=== PATIENT | male | born 1995 ===

== ENCOUNTER 2020-06-05 10:30 | Emergency (ER) | payer SELFPAY ==
[2020-06-05] MEDS ORDERED: ALBUTEROL 2.5 MG/3 ML NEBU IH ONE ×2 (10:58→13:33)
[2020-06-05] MEDS ORDERED: IPRATROPIUM 0.02% NEBU 2.5 ML IH ONE (10:58)
[2020-06-05] MEDS ORDERED: dexAMETHasone 20 MG/5 ML VIAL IM ONE (10:58)
[2020-06-05 11:21] LABS: Hematocrit 45.7 % (35.5-45.6); Hemoglobin 15.8 gm/dl (11.8-15.2); Mean Corpuscular HGB Conc 35 % (32-34); Mean Corpuscular Volume 95 fl (84-94); Platelet Count 189 K/mm3 (140-440); Red Blood Count 4.83 M/mm3 (3.65-5.03)
[2020-06-05 11:48] LABS: Alanine Aminotransferase 7 units/L (7-56); Albumin 3.9 g/dL (3.9-5); BUN/Creatinine Ratio 11; Blood Urea Nitrogen 10 mg/dL (9-20); Calcium 9.9 mg/dL (8.4-10.2); Hemolysis Index 15
--- NOTE | 2020-06-05 12:00 | XRay Report ---
CHEST 2 VIEWS INDICATION / CLINICAL INFORMATION: MAIN. Chest pain COMPARISON: None available. FINDINGS: SUPPORT DEVICES: None. HEART / MEDIASTINUM: No significant abnormality. LUNGS / PLEURA: No significant pulmonary or pleural abnormality. No pneumothorax. ADDITIONAL FINDINGS: No significant additional findings. IMPRESSION: 1. No acute findings. Signer Name: Asher Amador MD Signed: 06/05/2020 11:56 AM Workstation Name: [id number]
[2020-06-05] MEDS ORDERED: MAGNESIUM SULFATE 2 GM/50 ML BAG IV ONE (12:09)
--- NOTE | 2020-06-05 12:56 | Emergency Department Report ---
ED Asthma HPI - General Chief Complaint: Adult Asthma Stated Complaint: ASTHMA/CHEST PAIN Time Seen by Provider: 06/05/20 11:33 Source: patient Mode of arrival: Ambulatory Limitations: No Limitations - History of Present Illness Initial Comments: Patient is a 24-year-old male presents emergency room with complaints of an asthma exacerbation that began 3 days ago but worsened this morning. He states he has been using his albuterol inhaler over the last couple days which was helping relief of symptoms but today he states that it was not helping. He has associated shortness of breath, wheezing, chest tightness. He states he has an occasional dry cough. He denies any fever, nausea, vomiting, diarrhea, rhinorrhea, sore throat, ear pain, productive cough. He denies any known sick contacts. He denies any recent travel. He has never had to be intubated for his asthma. He states he has been admitted for his asthma before but it was several years ago. He denies any other past medical history. No allergies to medications. - Related Data Previous Rx's Medication Instructions Recorded Last Taken Type ALBUTEROL NEB's [Proventil 0.083% 2.5 mg IH TID PRN #1 box 06/05/20 Unknown Rx NEBS] Albuterol Sulfate [Proventil Hfa] 6.7 gm IH TID PRN #1 hfa.aer.ad 06/05/20 Unknown Rx Prednisone [predniSONE 10 mg 10 mg PO .TAPER #1 tab.ds.pk 06/05/20 Unknown Rx (6-Day Pack, 21 Tabs)] Allergies Allergy/AdvReac Type Severity Reaction Status Date / Time No Known Allergies Allergy Unverified 06/05/20 10:49 ED Review of Systems ROS: Stated complaint: ASTHMA/CHEST PAIN Other details as noted in HPI Comment: All other systems reviewed and negative ED Past Medical Hx - Past Medical History Previous Medical History?: Yes Hx Asthma: Yes - Surgical History Past Surgical History?: No - Social History Smoking Status: Never Smoker Substance Use Type: None - Medications Home Medications: Home Medications Medication Instructions Recorded Confirmed Last Taken Type ALBUTEROL NEB's [Proventil 0.083% 2.5 mg IH TID PRN #1 box 06/05/20 Unknown Rx NEBS] Albuterol Sulfate [Proventil Hfa] 6.7 gm IH TID PRN #1 hfa.aer.ad 06/05/20 Unknown Rx Prednisone [predniSONE 10 mg 10 mg PO .TAPER #1 tab.ds.pk 06/05/20 Unknown Rx (6-Day Pack, 21 Tabs)] ED Physical Exam - General Limitations: No Limitations General appearance: alert - Head Head exam: Present: atraumatic, normocephalic - Eye Eye exam: Present: normal appearance - ENT ENT exam: Present: mucous membranes moist - Respiratory Respiratory exam: Present: respiratory distress (moderate), wheezes (bilaterally), decreased breath sounds (bilaterally), prolonged expiratory. Absent: rales, rhonchi, stridor, chest wall tenderness, accessory muscle use - Cardiovascular Cardiovascular Exam: Present: regular rate, normal rhythm, normal heart sounds. Absent: systolic murmur, diastolic murmur, rubs, gallop - Neurological Exam Neurological exam: Present: alert, oriented X3 - Psychiatric Psychiatric exam: Present: normal affect, normal mood - Skin Skin exam: Present: warm, dry, intact ED Course Vital Signs 06/05/20 06/05/20 06/05/20 10:45 13:06 13:07 Temperature 97.5 F L 98.1 F 98.1 F Pulse Rate 97 H 87 73 Respiratory 26 H 18 18 Rate Blood Pressure 121/72 127/67 Blood Pressure 127/67 [Right] O2 Sat by Pulse 92 94 93 Oximetry 06/05/20 06/05/20 14:23 14:25 Temperature 98.1 F 98.2 F Pulse Rate 73 73 Respiratory 16 16 Rate Blood Pressure 123/70 Blood Pressure 123/70 [Right] O2 Sat by Pulse 94 94 Oximetry - Reevaluation(s) Reevaluation #1: 06/05/20 14:59 On reexamination wheezing has completely resolved ED Medical Decision Making - Lab Data Result diagrams: 06/05/20 10:56 06/05/20 10:56 Lab Results 06/05/20 06/05/20 Range/Units 10:56 10:56 WBC 9.1 (4.5-11.0) K/mm3 RBC 4.83 (3.65-5.03) M/mm3 Hgb 15.8 H (11.8-15.2) gm/dl Hct 45.7 H (35.5-45.6) % MCV 95 H (84-94) fl MCH 33 H (28-32) pg MCHC 35 H (32-34) % RDW 13.0 L (13.2-15.2) % Plt Count 189 (140-440) K/mm3 Sodium 143 (137-145) mmol/L Potassium 4.7 (3.6-5.0) mmol/L Chloride 104.6 (98-107) mmol/L Carbon Dioxide 34 H (22-30) mmol/L Anion Gap 9 mmol/L BUN 10 (9-20) mg/dL Creatinine 0.9 (0.8-1.3) mg/dL Estimated GFR > 60 ml/min BUN/Creatinine Ratio 11 % Glucose 87 (75-100) mg/dL Calcium 9.9 (8.4-10.2) mg/dL Total Bilirubin 0.20 (0.1-1.2) mg/dL AST 16 (5-40) units/L ALT 7 (7-56) units/L Alkaline Phosphatase 74 (35-129) units/L Total Protein 7.3 (6.3-8.2) g/dL Albumin 3.9 (3.9-5) g/dL Albumin/Globulin Ratio 1.1 % Vital Signs (72 hours) 06/05/20 06/05/20 06/05/20 10:45 13:06 13:07 Temperature 97.5 F L 98.1 F 98.1 F Pulse Rate 97 H 87 73 Respiratory 26 H 18 18 Rate Blood Pressure 121/72 127/67 Blood Pressure 127/67 [Right] O2 Sat by Pulse 92 94 93 Oximetry 06/05/20 06/05/20 14:23 14:25 Temperature 98.1 F 98.2 F Pulse Rate 73 73 Respiratory 16 16 Rate Blood Pressure 123/70 Blood Pressure 123/70 [Right] O2 Sat by Pulse 94 94 Oximetry - Radiology Data Radiology results: report reviewed Ordering Physician: HOLDEN HOLLAND Date of Service: 06/05/20 Procedure(s): XR chest routine 2V Accession Number(s): [id number] cc: HOLDEN HOLLAND Fluoro Time In Minutes: CHEST 2 VIEWS INDICATION / CLINICAL INFORMATION: MAIN. Chest pain COMPARISON: None available. FINDINGS: SUPPORT DEVICES: None. HEART / MEDIASTINUM: No significant abnormality. LUNGS / PLEURA: No significant pulmonary or pleural abnormality. No pneumothorax. ADDITIONAL FINDINGS: No significant additional findings. IMPRESSION: 1. No acute findings. Signer Name: Nolberto Alcazar MD Signed: 06/05/2020 11:56 AM Workstation Name: [id number] Transcribed By: Dictated By: NOLBERTO ALCAZAR Electronically Authenticated By: NOLBERTO ALCAZAR Signed Date/Time: 06/05/20 1156 DD/ 1154 TD/TT: - Medical Decision Making Patient is a 24-year-old male presents emergency room with complaints of an asthma exacerbation that began 3 days ago but worsened this morning. He states he has been using his albuterol inhaler over the last couple days which was helping relief of symptoms but today he states that it was not helping. He has associated shortness of breath, wheezing, chest tightness. He states he has an occasional dry cough. He denies any fever, nausea, vomiting, diarrhea, rhinorrhea, sore throat, ear pain, productive cough. He denies any known sick contacts. He denies any recent travel. He has never had to be intubated for his asthma. He states he has been admitted for his asthma before but it was s everal years ago. He denies any other past medical history. No allergies to medications. Initial vitals with hypoxia and tachypnea. On exam he has moderate respiratory distress, wheezing and decreased breath sounds bilaterally. Labs are stable. CXR: 1. No acute findings. Patient given continuous neb treatment, steroids, magnesium. On reexamination breath sounds are completely clear, wheezing has resolved, patient has no respiratory distress, no accessory muscle use, he is feeling much better and ready to go home. He states he is breathing much better. Patient was ambulated in the emergency department by nurse and maintained sats of 94 percent or higher on RA and did not have any epi sodes of desaturation or shortness of breath. He does not have any clinical signs of bacterial pneumonia or bronchitis. Patient states that he does have a nebulizer machine but does not have any solution. Patient given prescription for albuterol inhaler, nebulizer solution, steroids. Discussed strict return precautions with patient. Advised patient to be reexamined by primary care doctor. Advised patient Please use medication as prescribed. Follow-up with your primary care doctor. Return to emergency room any new or worsening symptoms. - Differential Diagnosis Asthma, acute bronchitis, PNA, URI, viral syndrome, reactive airway Critical care attestation.: If time is entered above; I have spent that time in minutes in the direct care of this critically ill patient, excluding procedure time. ED Disposition Clinical Impression: Asthma exacerbation Qualifiers: Asthma severity: unspecified severity Asthma persistence: unspecified Qualified Code(s): J45.901 - Unspecified asthma with (acute) exacerbation Disposition: TO HOME OR SELFCARE Is pt being admited?: No Does the pt Need Aspirin: No Condition: Stable Instructions: Asthma, Adult Additional Instructions: Please use medication as prescribed. Follow-up with your primary care doctor. Return to emergency room any new or worsening symptoms. Prescriptions: Prednisone [predniSONE 10 mg (6-Day Pack, 21 Tabs)] 10 mg PO .TAPER #1 tab.ds.pk ALBUTEROL NEB's [Proventil 0.083% NEBS] 2.5 mg IH TID PRN #1 box PRN Reason: Wheezing Albuterol Sulfate [Proventil Hfa] 6.7 gm IH TID PRN #1 hfa.aer.ad PRN Reason: Wheezing Referrals: your, primary care doctor [Other] - 2-3 Days Time of Disposition: 15:00 Print Language: CITIZEN OF [place]
[2020-06-05] MEDS ORDERED: IBUPROFEN 600 MG TAB PO ONE (13:32)
[2020-06-05 14:26] VITALS: BP 123/70
== END 2020-06-05 15:10 | disposition home or self-care (01) ==
LOC: ED 10:30
DX: J45.901 Unspecified asthma with (acute) exacerbation (principal); Z79.899 Other long term (current) drug therapy
CPT/HCPCS: 36415; 71046; 80053; 85027; 94640; 96365; 96372; 99284; J1100; J3475

== ENCOUNTER 2020-07-15 18:25 | Emergency (ER) | payer SELFPAY ==
[2020-07-15] MEDS ORDERED: IPRATROPIUM 0.02% NEBU 2.5 ML IH ONE (18:37)
[2020-07-15] MEDS ORDERED: dexAMETHasone 20 MG/5 ML VIAL IM ONE (18:37)
[2020-07-15] MEDS ORDERED: ALBUTEROL 2.5 MG/3 ML NEBU IH ONE (18:37)
[2020-07-15 18:38] VITALS: BP 115/75
--- NOTE | 2020-07-15 18:39 | Event Note ---
ED Screening Note Date of service: 07/15/20 Time: 18:38 ED Screening Note: Complains of asthma exacerbation today Wheezing and rhonchi noted on exam This initial assessment/diagnostic orders/clinical plan/treatment(s) is/are subject to change based on patients health status, clinical progression and re- assessment by fellow clinical providers in the ED. Further treatment and workup at subsequent clinical providers discretion. Patient/guardian urged not to elope from the ED as their condition may be serious if not clinically assessed and managed. Initial orders include: Chest x-ray Continuous neb Decadron
[2020-07-15] MEDS ORDERED: EPINEPHrine/PF 1 MG/1 ML INJ SUB-Q ONE (18:56)
[2020-07-15] MEDS ORDERED: methylPREDNISolone Sod Succinate 125 MG/2 ML INJ IV ONE (18:56)
[2020-07-15] MEDS ORDERED: MAGNESIUM SULFATE 2 GM/50 ML BAG IV ONE (18:56)
[2020-07-15] MEDS ORDERED: SODIUM CHLORIDE 0.9% 1000 ML 1,000 ML IV ONE (18:56)
--- NOTE | 2020-07-15 18:58 | Emergency Department Report ---
ED General Adult HPI - General Chief complaint: Dyspnea/Respdistress Stated complaint: DIFFICULTY BREATHING PUI?: Yes Time Seen by Provider: 07/15/20 18:36 Source: patient, RN notes reviewed, old records reviewed Mode of arrival: Ambulatory Limitations: No Limitations - History of Present Illness Initial comments: The patient was evaluated in the emergency department for symptoms described in the history of present illness. He/she was evaluated in the context of the global COVID-19 pandemic, which necessitated consideration that the patient might be at risk for infection with the virus that causes COVID-19. Institutional protocols and algorithms that pertain to the evaluation of patients at risk for COVID-19 are in a state of rapid change based on information released by regulatory bodies including the CDC and federal and state organizations. These policies and algorithms were followed during the patient's care in the emergency department. Please note that these policies, procedures and recommendations changed on a rapid basis. During the entire history and physical examination, I had a complete personal protective equipment. The patient is a 24-year-old gentleman who is not known to myself previously. The patient reports that he has a history of asthma. He believes he has been admitted to the hospital for asthma. He does not believe he is ever been intubated. He does not know how old he was when he was diagnosed with asthma. He presents to the ER with a painless complaint of cough, wheezing and shortness of breath. He states this feels similar to prior episodes of asthma. Denies fever, loss of taste, loss of smell. Asthma/shortness of breath/wheezing constant, worsens with physical exertion decreases with rest, and does not radiate anywhere. Denies additional injuries, pain complaints. -: Gradual, hour(s) Consistency: constant Improves with: rest Worsens with: movement - Related Data Previous Rx's Medication Instructions Recorded Last Taken Type ALBUTEROL NEB's [Proventil 0.083% 2.5 mg IH TID PRN #1 box 06/05/20 Unknown Rx NEBS] Albuterol Sulfate [Proventil Hfa] 6.7 gm IH TID PRN #1 hfa.aer.ad 06/05/20 Unknown Rx Prednisone [predniSONE 10 mg 10 mg PO .TAPER #1 tab.ds.pk 06/05/20 Unknown Rx (6-Day Pack, 21 Tabs)] Albuterol Sulfate [Proair 90 mcg IH Q4HR PRN #2 aer.pow.ba 07/15/20 Unknown Rx Respiclick] predniSONE [Deltasone] 40 mg PO QDAY #8 tab 07/15/20 Unknown Rx Allergies Allergy/AdvReac Type Severity Reaction Status Date / Time No Known Allergies Allergy Unverified 06/05/20 10:49 ED Review of Systems ROS: Stated complaint: DIFFICULTY BREATHING Other details as noted in HPI Constitutional: denies: fever ENT: congestion Respiratory: cough, shortness of breath, SOB with exertion, SOB at rest, wheezing Cardiovascular: denies: chest pain Gastrointestinal: denies: abdominal pain, nausea Musculoskeletal: denies: back pain Neurological: weakness Psychiatric: anxiety ED Past Medical Hx - Past Medical History Previous Medical History?: Yes Hx Asthma: Yes - Social History Smoking Status: Never Smoker Substance Use Type: None - Medications Home Medications: Home Medications Medication Instructions Recorded Confirmed Last Taken Type ALBUTEROL NEB's [Proventil 0.083% 2.5 mg IH TID PRN #1 box 06/05/20 Unknown Rx NEBS] Albuterol Sulfate [Proventil Hfa] 6.7 gm IH TID PRN #1 hfa.aer.ad 06/05/20 Unknown Rx Prednisone [predniSONE 10 mg 10 mg PO .TAPER #1 tab.ds.pk 06/05/20 Unknown Rx (6-Day Pack, 21 Tabs)] Albuterol Sulfate [Proair 90 mcg IH Q4HR PRN #2 aer.pow.ba 07/15/20 Unknown Rx Respiclick] predniSONE [Deltasone] 40 mg PO QDAY #8 tab 07/15/20 Unknown Rx ED Physical Exam - General Limitations: No Limitations General appearance: alert, anxious, in distress - Head Head exam: Present: atraumatic, normocephalic - Eye Eye exam: Present: normal appearance, EOMI. Absent: nystagmus - ENT ENT exam: Present: normal exam, normal orophraynx, mucous membranes moist, normal external ear exam - Neck Neck exam: Present: normal inspection, full ROM. Absent: tenderness, meningismus - Respiratory Respiratory exam: Present: wheezes, rhonchi. Absent: respiratory distress, stridor - Cardiovascular Cardiovascular Exam: Present: normal rhythm, tachycardia, normal heart sounds. Absent: systolic murmur, diastolic murmur, rubs, gallop - GI/Abdominal GI/Abdominal exam: Present: soft. Absent: distended, tenderness, guarding, rebound, rigid, pulsatile mass - Rectal Rectal exam: Present: deferred - Extremities Exam Extremities exam: Present: normal inspection, full ROM, other (2+ pulses noted in the bilateral upper and lower extremities. There is no palpable cord. negative Homans sign. Muscular compartments are soft. The pelvis is stable.). Absent: pedal edema, calf tenderness - Back Exam Back exam: Present: normal inspection, full ROM. Absent: tenderness, CVA tenderness (R), CVA tenderness (L), paraspinal tenderness, vertebral tenderness - Neurological Exam Neurological exam: Present: alert, oriented X3, normal gait, other (No facial droop. Tongue midline. Extraocular movements intact bilaterally. Facial sensation intact to light touch in V1, V2, V3 distribution bilaterally. 5 and a 5 strength in 4 extremities. Sensation intact to light touch in 4 extremities.). Absent: motor sensory deficit - Psychiatric Psychiatric exam: Present: anxious - Skin Skin exam: Present: warm, dry, intact, normal color. Absent: rash ED Course Vital Signs 07/15/20 07/15/20 18:37 19:35 Temperature 98.3 F Pulse Rate 110 H Pulse Rate [ 99 H Bilateral] Respiratory 18 Rate Respiratory 28 H Rate [Bilateral ] Blood Pressure 115/75 O2 Sat by Pulse 96 Oximetry - Reevaluation(s) Reevaluation #1: 07/15/20 19:09 Differential diagnosis, including but not limited to: Reactive airway disease, asthma exacerbation, pneumonia, viral syndrome, suspected COVID-19 Assessment and plan: 24-year-old gentleman with cough, wheezing, shortness of breath, known history of reactive airway disease, who is afebrile, with reassuring vital signs with exception of tachycardia, likely secondary to underlying physiologic distress from reactive airway disease, denies travel, surgery, oral contraceptive use, DVT and pulmonary embolism risk factors, and I find to be low risk by Wells criteria. Denies exposure to Covid individuals. Denies loss of taste and loss of smell. However, given that he is presenting given the current Covid pandemic, placed on isolation, obtain x-ray of the chest, placed on a general manager in training, administer albuterol, Atrovent, steroids and reassess. Discussed plan of care with the patient, who verbalized understanding, and is amenable to this plan of care. 07/15/20 20:56 Patient is reassessed. His wheezing is resolved. I did not appreciate retractions on his initial examination, and he certainly does not have retractions presently at this moment. Saturating at 100% on room air. Somewhat tachycardic, we would expect that after that after albuterol therapy. Respiratory rate improved, currently 18 to 20 breaths/min. Complains of mild headache. Playing on a cell phone. Neurologic examination nonfocal. Suitable for discharge at this time. Ibuprofen ordered. 07/15/20 21:03 ED Medical Decision Making - Lab Data Vital Signs 07/15/20 07/15/20 18:37 19:35 Temperature 98.3 F Pulse Rate 110 H Pulse Rate [ 99 H Bilateral] Respiratory 18 Rate Respiratory 28 H Rate [Bilateral ] Blood Pressure 115/75 O2 Sat by Pulse 96 Oximetry - Radiology Data Radiology results: report reviewed, image reviewed X-ray of the chest was negative for acute findings at this time Critical Care Time: Yes Critical care time in (mins) excluding proc time.: 35 Critical care attestation.: If time is entered above; I have spent that time in minutes in the direct care of this critically ill patient, excluding procedure time. ED Disposition Clinical Impression: Suspected 2019 novel coronavirus infection Reactive airway disease Qualifiers: Asthma severity: moderate Asthma complication type: with acute exacerbation Disposition: DC-01 TO HOME OR SELFCARE Is pt being admited?: No Does the pt Need Aspirin: No Condition: Good Instructions: Asthma, Adult, COVID-19 Frequently Asked Questions Additional Instructions: As we discussed, the patient most likely has novel coronavirus/COVID. the symptoms of COVID will typically persist 10 to 14 days. There is no cure at this time for COVID. Please make certain to self isolate and self quarantine, follow-up with an outpatient primary care doctor within the next 3 to 5 days, wash hands with soap and water frequently, thoroughly and often, patient may take the prescribed medications as needed and directed. Advance diet and drink plenty of fluids as tolerated. Avoid interactions with the very elderly, very young, and those with chronic medical conditions. Return to the emergency room right away with new pain, worsening pain, migration of pain, projectile vomiting, change in mental status, confusion, inability to tolerate liquid feeds, new, worsened or different symptoms not present on the initial emergency room evaluation. Take the prescribed steroids, breathing medication as needed and directed. Patient may alternate [id number] Tylenol with [id number] ibuprofen as needed for physical pain. Prescriptions: predniSONE [Deltasone] 40 mg PO QDAY #8 tab Albuterol Sulfate [Proair Respiclick] 90 mcg IH Q4HR PRN #2 aer.pow.ba PRN Reason: Wheezing Referrals: PRIMARY CAREMD [Primary Care Provider] - 3-5 Days ADELFO PEARSON MD [Staff Physician] - 3-5 Days [facility] [Provider Group] - 3-5 Days Forms: Work/School Release Form(ED)
--- NOTE | 2020-07-15 19:38 | XRay Report ---
CHEST 1 VIEW INDICATION: dyspnea. COMPARISON: None FINDINGS: SUPPORT DEVICES: None. HEART: Within normal limits. LUNGS/PLEURA: No acute air space or interstitial disease. ADDITIONAL FINDINGS: None. IMPRESSION: 1. No acute findings. Signer Name: Donavan Farley MD Signed: 07/15/2020 7:33 PM Workstation Name: [id number]
[2020-07-15] MEDS ORDERED: predniSONE 20 MG TAB PO ONE (20:44)
[2020-07-15] MEDS ORDERED: IBUPROFEN 400 MG TAB PO ONE (20:52)
== END 2020-07-15 22:05 | disposition home or self-care (01) ==
LOC: ED 18:25
DX: J45.909 Unspecified asthma, uncomplicated (principal); Z79.899 Other long term (current) drug therapy; Z20.828 Contact with and (suspected) exposure to other viral communicable diseases
CPT/HCPCS: 71045; 94644; 99283; J7512